=== PATIENT | male | born 1980 | race Two or more races ===

== ENCOUNTER 2018-12-09 18:03 | Emergency (ER) | payer SELFPAY ==
[2018-12-09] MEDS ORDERED: NORMAL SALINE 1000 ML 1,000 ML IV ONE (19:28)
[2018-12-09] MEDS ORDERED: MECLIZINE HCL 25 MG TABLET PO ONE (19:30)
--- NOTE | 2018-12-09 19:30 | ER Document Report ---
ED Medical Screen (RME) - General Chief Complaint: Dizziness Stated Complaint: DIZZINESS Time Seen by Provider: 12/09/18 19:22 Notes: 37-year-old male coming in today complaining of dizziness and swimmy headedness since yesterday around noon. He was not working at the time. He was in his house. Not exerting himself. Complains of positional dizziness worse when he stands or when he lays down. He is not vomiting. No heart palpit ations. The first time that he has had the symptoms. I have treated and performed a rapid initial assessment of this patient. A comprehensive ED assessment and evaluation of the patient, analysis of test results and completion of medical decision making process will be conducted by additional ED providers. PHYSICAL EXAMINATION: GENERAL: Well-appearing, well-nourished and in no acute distress. A&Ox4. Answers questions appropriately. LUNGS: Breath sounds clear to auscultation bilaterally and equal. No wheezes rales or rhonchi. HEART: Regular rate and rhythm without murmurs, rubs, gallops. Extremities: No cyanosis, clubbing, or edema b/l. NEUROLOGICAL: Normal speech, normal gait. PSYCH: Normal mood, normal affect. TRAVEL OUTSIDE OF THE [place] IN LAST 30 DAYS: No - Related Data Allergies/Adverse Reactions: No Known Allergies Allergy (Verified 12/09/18 18:03) Past Medical History - Social History Chew tobacco use (# tins/day): No Frequency of alcohol use: Occasional Drug Abuse: None Renal/ Medical History: Denies: Hx Peritoneal Dialysis Physical Exam - Vital signs Vitals: Temp Pulse Resp BP Pulse Ox 98.5 F 70 16 132/89 H 97 12/09/18 18:26 12/09/18 18:26 12/09/18 18:26 12/09/18 18:26 12/09/18 18:26 Course - Vital Signs Vital signs: Temp Pulse Resp BP Pulse Ox 98.5 F 70 16 132/89 H 97 12/09/18 18:26 12/09/18 18:26 12/09/18 18:26 12/09/18 18:26 12/09/18 18:26
[2018-12-09 20:39] LABS: ABSOLUTE EOSINOPHILS # (AUTO) 0.1 10^3/uL (0.0-0.6); ABSOLUTE LYMPHOCYTES (AUTO) 2.7 10^3/uL (0.5-4.7); ABSOLUTE MONOCYTES (AUTO) 0.3 10^3/uL (0.1-1.4); ABSOLUTE NEUT (AUTO) 4.1 10^3/uL (1.7-8.2); BASOPHILS % (AUTO) 0.3 % (0-2); EOSINOPHILS % (AUTO) 1.3 % (0-6); HEMATOCRIT 45.4 % (37.9-51.0); HEMOGLOBIN 15.2 g/dL (13.5-17.0); LYMPHOCYTES % (AUTO) 37.2 % (13-45); MEAN CORPUSCULAR HEMOGLOBIN 30.3 pg (27.0-33.4); MEAN CORPUSCULAR HGB CONC 33.4 g/dL (32.0-36.0); MEAN CORPUSCULAR VOLUME 91 fl (80-97); MONOCYTES % (AUTO) 4.4 % (3-13); PLATELET COUNT 236 10^3/uL (150-450); RED CELL DISTRIBUTION WIDTH 13.7 % (11.5-14.0); SEGMENTED NEUTROPHILS % (AUTO) 56.8 % (42-78); TOTAL CELLS COUNTED % (AUTO) 100 %; WHITE BLOOD COUNT 7.3 10^3/uL (4.0-10.5)
[2018-12-09 20:56] LABS: ALANINE AMINOTRANSFERASE 51 U/L (21-72); ALBUMIN 4.4 g/dL (3.5-5.0); ALKALINE PHOSPHATASE 91 U/L (38-126); ANION GAP 13 (5-19); ASPARTATE AMINO TRANSFERASE 43 U/L (17-59); BILIRUBIN,DIRECT 0.2 mg/dL (0.0-0.4); BILIRUBIN,TOTAL 0.4 mg/dL (0.2-1.3); BLOOD UREA NITROGEN 17 mg/dL (7-20); CALCIUM 9.7 mg/dL (8.4-10.2); CARBON DIOXIDE 28 mmol/L (22-30); CHLORIDE 100 mmol/L (98-107); GLUCOSE 125 mg/dL (75-110); POTASSIUM 4.2 mmol/L (3.6-5.0); SODIUM 140.7 mmol/L (137-145)
--- NOTE | 2018-12-09 23:00 | EKG REPORT ---
SEVERITY:- NORMAL ECG - SINUS RHYTHM ST ELEV, PROBABLE NORMAL EARLY REPOL PATTERN : Confirmed by: Darshan Jackson MD 09-Dec-2018 22:59:49
[2018-12-10] MEDS ORDERED: MECLIZINE HCL 25 MG TABLET PO ONE (00:49)
--- NOTE | 2018-12-10 00:51 | ER Document Report ---
ED General - General Chief Complaint: Dizziness Stated Complaint: DIZZINESS Time Seen by Provider: 12/09/18 19:22 Mode of Arrival: Ambulatory Information source: Patient, [facility] Records Notes: 37-year-old male with no reported past medical history presents with complaint of dizziness that started 1 day prior to arrival. Patient describes the dizziness as feeling like things are moving. States it is worse when he sits up. Denies headache, visual changes, ear pain, nausea, vomiting, recent i llness. Patient did drive himself to the hospital today. Patient denies any head injury. TRAVEL OUTSIDE OF THE [place] IN LAST 30 DAYS: No - HPI Onset: Yesterday Onset/Duration: Gradual, Intermittent Quality of pain: No pain Severity: None Pain Level: Denies Associated symptoms: denies: Body/muscle aches, Chest pain, Earache, Fever, Headache, Nausea, Vomiting, Sweating Exacerbated by: Movement Relieved by: Supine Similar symptoms previously: No Recently seen / treated by doctor: No - Related Data Allergies/Adverse Reactions: No Known Allergies Allergy (Verified 12/09/18 18:03) Past Medical History - General Information source: Patient - Social History Smoking Status: Current Every Day Smoker Cigarette use (# per day): Yes - 10 Chew tobacco use (# tins/day): No Smoking Education Provided: Yes - Smoking cessation counseling was provided for 4 minutes at the bedside Frequency of alcohol use: Occasional Drug Abuse: None Lives with: Family Family History: Reviewed & Not Pertinent Patient has suicidal ideation: No Patient has homicidal ideation: No - Medical History Medical History: Negative Renal/ Medical History: Denies: Hx Peritoneal Dialysis Review of Systems - Review of Systems Notes: REVIEW OF SYSTEMS: CONSTITUTIONAL : Denies fever, chills, or sweats. Denies recent illness. De nies weight loss, recent hospitalizations. EENT: Denies visual changes, eye pain. Denies sore throat, oral lesions, difficulty swallowing. CARDIOVASCULAR: Denies chest pain. Denies palpitations. Denies lower extremity edema. RESPIRATORY: Denies cough. Denies shortness of breath, wheezing. GASTROINTESTINAL: Denies abdominal pain or distention. Denies nausea, vomiting, or diarrhea. Denies blood in vomitus, stools, or per rectum. Denies black, tarry stools. Denies constipation. GENITOURINARY: Denies difficulty urinating, painful urination, frequency, blood in urine, testicular pain or penile discharge. MUSCULOSKELETAL: Denies back or neck pain or stiffness. Denies joint pain or swelling. SKIN: Denies rash, lesions or sores. HEMATOLOGIC : Denies easy bruising or bleeding. LYMPHATIC: Denies swollen glands. NEUROLOGICAL: Denies confusion or altered mental status. Denies loss of consciousness. Denies lightheadedness. Denies headache. Denies weakness or paralysis. Denies problems difficulty with ambulation, slurred speech. Denies sensory loss, numbness, or tingling. Denies seizures. PSYCHIATRIC: Denies anxiety or stress. Denies depression, suicidal ideation, or Physical Exam - Vital signs Vitals: Temp Pulse Resp BP Pulse Ox 98.5 F 70 16 132/89 H 97 12/09/18 18:26 12/09/18 18:26 12/09/18 18:26 12/09/18 18:26 12/09/18 18:26 - Notes Notes: PHYSICAL EXAMINATION: GENERAL: Well-appearing, well-nourished and in no acute distress. HEAD: Atraumatic, normocephalic. EYES: Pupils equal round and reactive to light, extraocular movements intact, sclera anicteric, conjunctiva are normal. Left-sided nystagmus ENT: Nares patent, oropharynx clear without exudates. Moist mucous membranes. TMs clear bilaterally NECK: Normal range of motion, supple without lymphadenopathy LUNGS: Breath sounds clear to auscultation bilaterally and equal. No wheezes rales or rhonchi. HEART: Regular rate and rhythm without murmurs ABDOMEN: Soft, nontender, nondistended abdomen. No guarding, no rebound. No masses appreciated. Musculoskeletal: Normal range of motion, no pitting or edema. No cyanosis. NEUROLOGICAL: Cranial nerves grossly intact. Normal speech, normal gait. Normal sensory, motor exams PSYCH: Normal mood, normal affect. SKIN: Warm, Dry, normal turgor, no rashes or lesions noted. Course - Re-evaluation Re-evalutation: 12/11/18 18:38 Laboratory 12/09/18 12/09/18 20:20 20:20 WBC 7.3 RBC 5.00 Hgb 15.2 Hct 45.4 MCV 91 MCH 30.3 MCHC 33.4 RDW 13.7 Plt Count 236 Seg Neutrophils % 56.8 Lymphocytes % 37.2 Monocytes % 4.4 Eosinophils % 1.3 Basophils % 0.3 Absolute Neutrophils 4.1 Absolute Lymphocytes 2.7 Absolute Monocytes 0.3 Absolute Eosinophils 0.1 Absolute Basophils 0.0 Sodium 140.7 Potassium 4.2 Chloride 100 Carbon Dioxide 28 Anion Gap 13 BUN 17 Creatinine 0.83 Est GFR ( Amer) > 60 Est GFR (Non-Af Amer) > 60 Glucose 125 H Calcium 9.7 Total Bilirubin 0.4 Direct Bilirubin 0.2 Neonat Total Bilirubin Not Reportable Neonat Direct Bilirubin Not Reportable Neonat Indirect Bili Not Reportable AST 43 ALT 51 Alkaline Phosphatase 91 Total Protein 8.0 Albumin 4.4 Temp Pulse Resp BP Pulse Ox 97.2 F 63 18 117/82 98 12/10/18 01:53 12/10/18 01:53 12/10/18 01:53 12/10/18 01:53 12/10/18 01:53 Presentation of vertigo that appears most consistent with a benign peripheral vertigo. Patient has no abnormal findings on exam. Normal cerebellar testing, steady even gait. Able to walk on heels and toes. Normal proprioception. Patient is not an elevated risk for a cerebellar infarction given age, absence of significant risk factors. Patient did have improvement of symptoms here in the emergency department with meclizine. Suspect likely acute vestibular neuritis. I do not believe neurologic imaging is indicated at this time based on physical examination and clinical history. Patient will be discharged with recommendations to return should their symptoms worsen or they develop new concerning symptoms. - Vital Signs Vital signs: Temp Pulse Resp BP Pulse Ox 97.2 F 63 18 117/82 98 12/10/18 01:53 12/10/18 01:53 12/10/18 01:53 12/10/18 01:53 12/10/18 01:53 - Laboratory Result Diagrams: 12/09/18 20:20 12/09/18 20:20 Laboratory results interpreted by me: 12/09/18 20:20 Glucose 125 H Discharge - Discharge Clinical Impression: Benign positional vertigo Qualifiers: Laterality: left Qualified Code(s): H81.12 - Benign paroxysmal vertigo, left ear Condition: Good Disposition: HOME, SELF-CARE Instructions: Antinausea Medication ([facility]), Vertigo ([facility]) Additional Instructions: Follow up with your [id number] hours for further care or return to the ED IMMEDIATELY if symptoms worsen or you have any concerns. If you cannot afford to follow up with your primary care physician a list of low cost clinics have been provided at the end of your discharge papers as well. Most prescribed medications have multiple side effects. The safest thing to do is when filling your prescription speak to your pharmacist regarding possible interactions with your normal home medications and over the counter medications such as Ibuprofen, Tylenol, Benadryl. If you experience any symptoms that cause you discomfort or concern you should discontinue the medication immediately and return to the emergency room or call your primary care physician. Prescriptions: Meclizine HCl [Antivert 25 mg Tablet] 25 mg PO TID PRN #21 tablet PRN Reason: Ondansetron [Zofran Odt 4 mg Tablet] 1 - 2 tab PO Q4H PRN #15 tab.rapdis PRN Reason: For Nausea/Vomiting
[2018-12-10] MEDS ORDERED: ONDANSETRON 4 MG TAB.RAPDIS PO ONE (00:55)
[2018-12-10 02:00] VITALS: BP 117/82
== END 2018-12-10 02:05 | disposition home or self-care (01) ==
LOC: EDBD → ER 18:03
DX: H81.12 Benign paroxysmal vertigo, left ear (principal); F17.210 Nicotine dependence, cigarettes, uncomplicated; Z71.6 Tobacco abuse counseling
CPT/HCPCS: 93005; 99406; 99284; 96360; 96361; 36415; 85025; 80053; 93010; S0119; J7030